=== PATIENT | male | born 1980 | race African-American/Black ===

== ENCOUNTER 2022-02-23 12:28 | Emergency (ER) | payer SELFPAY ==
[~2022-02-23] VITALS: Ht 180 cm; Wt 77.0 kg
[~2022-02-23 12:28] MED LIST: CPR500T PO; CTLP20T PO; OMEP20TA2 PO; PAIN MED; PNT40TEC PO; PRD20T PO; PRM25T PO; TRAM-21 PO
--- NOTE | 2022-02-23 13:19 | ED Back Pain ---
General Chief Complaint: Back Problems Stated Complaint: BACK PAIN - COUGH Nursing Triage Note: PT AMB TO [facility] 9 WITH C/O LOW TO R SIDE BACK PAIN THAT HAS BEEN ONGOING FOR ABOUT A WEEK. PT HAS TRIED TYLENOL AND BACK BRACE WITHOUT RELIEF Source of Information: Patient Exam Limitations: No Limitations History of Present Illness Date Seen by Provider: Feb 23, 2022 Time Seen by Provider: 13:18 Initial Comments Patient is a 42-year-old male who presents ED with right-sided back pain. Started about 1 week ago after lifting heavy boxes. Sharp pain without any radiation. Has been taken Tylenol without much improvement. Pain appears to be worse when he lays down moves. Denies of any distal numbness and tingling into the lower extremities, pain with urination, hematuria, vomiting, diarrhea, fever, chills. Denies any falls. Allergies and Home Medications Allergies Coded Allergies: No Known Drug Allergies (Unverified , 12/14/10) Patient Home Medication List Home Medication List Reviewed: Yes Cyclobenzaprine HCl (Cyclobenzaprine HCl) 10 Mg Tablet, 10 MG PO TID PRN for MUSCLE SPASMS Prescribed by: KRISTA OROURKE on 02/23/22 1521 Naproxen (Naproxen) 500 Mg Tablet, 500 MG PO Q12H Prescribed by: KRISTA OROURKE on 02/23/22 1521 Omeprazole (Omeprazole) 20 Mg Tablet.dr, 20 MG PO BID Prescribed by: YARITZA CAVAZOS on 04/13/142152 Pantoprazole Sodium (Protonix) 40 Mg Tablet.dr, 1 TAB PO BID Prescribed by: HIWOT PEREZ on 11/12/13 0109 Tramadol Hcl (Ultram) 50 Mg Tablet, 50 MG PO Q6H Prescribed by: YARITZA CAVAZOS on 04/13/142152 [Otc Back Pain Med] , (Reported) Entered as Reported by: LY SMILEY on 04/13/14 182 Review of Systems Constitutional: No chills, No diaphoresis EENTM: No hearing loss, No ear pain, No blurred vision, No double vision Respiratory: No phlegm, No short of breath Cardiovascular: No chest pain, No edema Gastrointestinal: No diarrhea, No dysphagia Genitourinary: No decreased output, No discharge Musculoskeletal: back pain; No joint pain, No muscle pain Skin: No change in color Past Rffaaxa-Vcxlkg-Luslze Hx Patient Social History Tobacco Use?: Yes Tobacco type used: Cigarettes Smoking Status: Current Everyday Smoker Substance use?: Yes Substance type: Marijuana Substance frequency: Couple times a week Alcohol Use?: No Pt feels they are or have been: No Immunizations Up To Date Tetanus Booster (TDap): More than 5yrs Influenza Vaccine Up-to-Date: No; Not Current Seasonal Allergies Seasonal Allergies: No Past Medical History Surgery/Hospitalization HX: HTN, THYROID Surgeries: Yes (HEART MURMUR WHEN A BABY) Respiratory: Yes Asthma Cardiac: No Neurological: No Reproductive Disorders: No Sexually Transmitted Disease: No HIV/AIDS: No Gastrointestinal: Yes Gastroesophageal Reflux, Ulcer Musculoskeletal: No Endocrine: No Cancer: No Psychosocial: No Integumentary: No Blood Disorders: No Physical Exam Vital Signs Vital Signs - First Documented 02/23/22 12:58 Temp 36.4 Pulse 81 Resp 16 B/P (MAP) 139/101 (114) Capillary Refill : Height, Weight, BMI Height: 5'11.00" Weight: 160lbs. oz. [id number]; 23.00 BMI Method:Stated General Appearance: No Apparent Distress, WD/WN HEENT: PERRL/EOMI, TMs Normal, Normal ENT Inspection, Pharynx Normal Neck: Full Range of Motion, Normal Inspection, Non Tender, Supple Cardiovascular: Regular Rate, Rhythm, No Edema, No Gallop, No JVD, No Murmur Respiratory: Chest Non Tender, Lungs Clear, Normal Breath Sounds, No Accessory Muscle Use, No Respiratory Distress Gastrointestinal: Normal Bowel Sounds, No Organomegaly, No Pulsatile Mass, Non Tender, Soft Back: Vertebral Tenderness (Right-sided lumbar paraspinal muscle tenderness. Normal active range of motion. No swelling, erythema or ecchymosis) Extremity: Normal Capillary Refill, Normal Inspection, Normal Range of Motion, Non Tender Neurologic/Psychiatric: Alert, Oriented x3, No Motor/Sensory Deficits, Normal Mood/Affect, cash grain farmer II-XII Norm as Tested Skin: Normal Color, Warm/Dry Progress/Results/Core Measures Results/Orders Lab Results Laboratory Tests Test 02/23/22 13:45 02/23/22 14:00 02/23/22 14:40 Range/Units Urine Color YELLOW Urine Clarity CLEAR Urine pH 5.5 5-9 Urine Specific [place] >=1.030 1.016-1.022 Urine Protein NEGATIVE NEGATIVE Urine Glucose (UA) NEGATIVE NEGATIVE Urine Ketones NEGATIVE NEGATIVE Urine Nitrite NEGATIVE NEGATIVE Urine Bilirubin NEGATIVE NEGATIVE Urine Urobilinogen 0.2 < = 1.0 MG/DL Urine Leukocyte Esterase NEGATIVE NEGATIVE Urine RBC (Auto) NEGATIVE NEGATIVE Urine RBC RARE /HPF Urine WBC RARE /HPF Urine Squamous Epithelial Cells RARE /HPF Urine Crystals NONE /LPF Urine Bacteria TRACE /HPF Urine Casts NONE /LPF Urine Mucus SMALL H /LPF Urine Culture Indicated NO White Blood Count 9.1 4.3-11.0 10^3/uL Red Blood Count 5.87 H 4.30-5.52 10^6/uL Hemoglobin 15.0 13.3-17.7 g/dL Hematocrit 46 40-54 % Mean Corpuscular Volume 79 L 80-99 fL Mean Corpuscular Hemoglobin 26 25-34 pg Mean Corpuscular Hemoglobin Concent 33 32-36 g/dL Red Cell Distribution Width 12.8 10.0-14.5 % Platelet Count 323 130-400 10^3/uL Mean Platelet Volume 10.5 9.0-12.2 fL Immature Granulocyte % (Auto) 0 % Neutrophils (%) (Auto) 53 42-75 % Lymphocytes (%) (Auto) 23 12-44 % Monocytes (%) (Auto) 12 0-12 % Eosinophils (%) (Auto) 11 H 0-10 % Basophils (%) (Auto) 1 0-10 % Neutrophils # (Auto) 4.8 1.8-7.8 10^3/uL Lymphocytes # (Auto) 2.0 1.0-4.0 10^3/uL Monocytes # (Auto) 1.1 H 0.0-1.0 10^3/uL Eosinophils # (Auto) 1.0 H 0.0-0.3 10^3/uL Basophils # (Auto) 0.1 0.0-0.1 10^3/uL Immature Granulocyte # (Auto) 0.0 0.0-0.1 10^3/uL Sodium Level 140 135-145 MMOL/L Potassium Level 4.1 3.6-5.0 MMOL/L Chloride Level 106 98-107 MMOL/L Carbon Dioxide Level 24 21-32 MMOL/L Anion Gap 10 5-14 MMOL/L Blood Urea Nitrogen 14 7-18 MG/DL Creatinine 0.91 0.60-1.30 MG/DL Estimat Glomerular Filtration Rate 109 BUN/Creatinine Ratio 15 Glucose Level 76 70-105 MG/DL Calcium Level 9.4 8.5-10.1 MG/DL Corrected Calcium 9.4 8.5-10.1 MG/DL Total Bilirubin 0.7 0.1-1.0 MG/DL Aspartate Amino Transf (AST/SGOT) 22 5-34 U/L Alanine Aminotransferase (ALT/SGPT) 32 0-55 U/L Alkaline Phosphatase 95 40-136 U/L Total Protein 6.9 6.4-8.2 GM/DL Albumin 4.0 3.2-4.5 GM/DL My Orders Orders - KONSTANTIN RAMIREZ Urinalysis (02/23/22 13:11) Ketorolac Injection (Toradol Injection) (02/23/22 13:30) Orphenadrine Inj (Ed Only) (Norflex Inje (02/23/22 13:30) Cbc With Automated Diff (02/23/22 13:47) Comprehensive Metabolic Panel (02/23/22 13:47) Ns Iv 1000 Ml (Sodium Chloride 0.9%) (02/23/22 13:47) Medications Given in ED Current Medications Medications Dose Ordered Sig/Anthony Route Start Time Stop Time Status Last Admin Dose Admin Ketorolac Tromethamine 30 mg ONCE ONCE IM 02/23/22 13:30 02/23/22 13:31 DC 02/23/22 14:06 30 MG Orphenadrine Citrate 60 mg ONCE ONCE IM 02/23/22 13:30 02/23/22 13:31 DC 02/23/22 14:06 60 MG Vital Signs/I&O 02/23/22 12:58 Temp 36.4 Pulse 81 Resp 16 B/P (MAP) 139/101 (114) Blood Pressure Mean: 114 Departure Communication (PCP) Patient urinalysis negative for infection or hematuria. Lab work was otherwise unremarkable. This appears to be more musculoskeletal pain. Patient Was given Toradol and Norflexwith improvement. Patient was given liter fluid as he states he feels dehydrated. improvement of symptoms. Will discharge anti- inflammatories and muscle relaxers. He has no thoracic or lumbar midline tenderness. No radiculopathy type pain. No bowel or urine incontinence or saddle paresthesia. If any worsening symptoms return back to ED for further evaluation. Impression Primary Impression: Back pain Disposition: HOME, SELF-CARE Condition: Stable Departure-Patient Inst. Decision time for Depature: 15:19 Referrals: [facility] (PCP/Family) Primary Care Physician Patient Instructions: Muscle Strain (DC) Scripts Cyclobenzaprine HCl (Cyclobenzaprine HCl) 10 Mg Tablet 10 MG PO TID PRN for MUSCLE SPASMS, #16 TAB Prov: KONSTANTIN RAMIREZ 02/23/22 Naproxen (Naproxen) 500 Mg Tablet 500 MG PO Q12H for 10 Days, #20 TAB Prov: KONSTANTIN RAMIREZ 02/23/22 Work/School Note: Work Release Form Date Seen in the Emergency Department: Feb 23, 2022 Return to Work: Feb 25, 2022 KONSTANTIN RAMIREZ Feb 23, 2022 13:19
[2022-02-23] MEDS ORDERED: ORPHENADRINE 60 MG/2 ML (NORFLEX) AMP (ED ONLY) IM ONE (13:30)
[2022-02-23] MEDS ORDERED: KETOROLAC 30 MG/ML VIAL IM ONE (13:30)
[2022-02-23] MEDS ORDERED: NS IV 1000 ML 1,000 ML IV STA (13:47)
[2022-02-23 13:51] LABS: BILIRUBIN,URINE NEGATIVE (NEGATIVE); CLARITY,URINE CLEAR; COLOR,URINE YELLOW; GLUCOSE, URINE (UA) NEGATIVE (NEGATIVE); KETONES,URINE NEGATIVE (NEGATIVE); LEUKOCYTE ESTERASE ,URINE NEGATIVE (NEGATIVE); NITRITE,URINE NEGATIVE (NEGATIVE); PH,URINE 5.5 (5-9); PROTEIN,URINE NEGATIVE (NEGATIVE)
[2022-02-23 14:01] LABS: BACTERIA,URINE TRACE /HPF; RBC,URINE RARE /HPF; SQUAMOUS EPITHELIAL CELL,UR RARE /HPF; WBC,URINE RARE /HPF
[2022-02-23 14:15] LABS: BASOPHILS # (AUTO) 0.1 10^3/uL (0.0-0.1); BASOPHILS % (AUTO) 1 % (0-10); EOSINOPHILS % (AUTO) 11 % (0-10); HEMATOCRIT 46 % (40-54); LYMPHOCYTES % (AUTO) 23 % (12-44); MEAN CORPUSCULAR HEMOGLOBIN 26 pg (25-34); MEAN CORPUSCULAR HGB CONC 33 g/dL (32-36); MEAN CORPUSCULAR VOLUME 79 fL (80-99); MEAN PLATELET VOLUME 10.5 fL (9.0-12.2); MONOCYTES # (AUTO) 1.1 10^3/uL (0.0-1.0); MONOCYTES % (AUTO) 12 % (0-12); NEUTROPHILS # (AUTO) 4.8 10^3/uL (1.8-7.8); NEUTROPHILS % (AUTO) 53 % (42-75); PLATELET COUNT 323 10^3/uL (130-400); WHITE BLOOD COUNT 9.1 10^3/uL (4.3-11.0)
[2022-02-23 15:12] LABS: POTASSIUM 4.1 MMOL/L (3.6-5.0)
[2022-02-23 15:13] LABS: CALCIUM 9.4 MG/DL (8.5-10.1)
[2022-02-23 15:14] LABS: TOTAL PROTEIN 6.9 GM/DL (6.4-8.2)
[2022-02-23 15:16] LABS: BILIRUBIN,TOTAL 0.7 MG/DL (0.1-1.0)
[2022-02-23 15:18] LABS: CREATININE SERUM 0.91 MG/DL (0.60-1.30)
[2022-02-23] MEDS ORDERED: NAPR-915 PO (15:21)
[2022-02-23] MEDS ORDERED: CYCL10TA25 PO (15:21)
[2022-02-23 15:40] VITALS: BP 149/97
== END 2022-02-23 15:39 | disposition home or self-care (01) ==
LOC: EDUNIT# 12:28 → ER 12:30
DX: M54.50 Low back pain, unspecified (principal); F17.210 Nicotine dependence, cigarettes, uncomplicated; Z28.310 Unvaccinated for COVID-19; X50.0XXA Overexertion from strenuous movement or load, initial encounter
CPT/HCPCS: 36415; 80053; 81000; 85025